=== PATIENT | female | born 1950 | race Caucasian/White ===

== ENCOUNTER 2017-01-29 11:24 | Outpatient (CLI) | payer MEDICARE, OTHER | END 2017-01-29 11:25 | disposition home or self-care (01) | DX: R00.2 Palpitations (principal); E03.9 Hypothyroidism, unspecified; F41.8 Other specified anxiety disorders; Z79.899 Other long term (current) drug therapy ==

== ENCOUNTER 2017-02-05 11:32 | Outpatient (CLI) | payer MEDICARE, OTHER | END 2017-02-05 11:33 | disposition home or self-care (01) | LOC: LAB.F 11:32 | PROVIDERS: ATTEND Physician Assistant Medical | DX: E55.9 Vitamin D deficiency, unspecified (principal) | CPT/HCPCS: 36415; 80175; 82306 ==

== ENCOUNTER 2017-07-03 10:45 | Outpatient (CLI) | payer MEDICARE, OTHER ==
--- NOTE | 2017-07-04 17:07 | Mammography Report ---
DIGITAL SCREENING MAMMOGRAM: 07/03/2017 CLINICAL INDICATION: A 66-year-old for screening. COMPARISON: 05/2016, 05/2015, 04/2014, 04/2009. TECHNIQUE: Routine CC and MLO projections were obtained of the breasts. The breasts demonstrate heterogeneously dense fibroglandular parenchyma bilaterally. Coarse and punc guzman, typically benign calcifications are present. No suspicious masses, clustered microcalcificatio ns, or regions of architectural distortion are identified. IMPRESSION: BENIGN FINDINGS. RECOMMENDATION: ROUTINE ANNUAL SCREENING UNLESS OTHERWISE CLINICALLY INDICATED. BIRADS CATEGORY: 2, BENIGN FINDINGS. STANDARD QUALIFYING STATEMENTS 1. This examination was reviewed with the aid of Computed-Aided Detection (CAD). 2. A negative or benign imaging report should not delay biopsy if clinically suspicious findings are present. Consider surgical consultation if warranted. More than 5% of cancers are not identified b y imaging. 3. Dense breasts may obscure an underlying neoplasm. JOB #: [id number] EXT JOB #:[id number]
== END 2017-07-03 10:46 | disposition home or self-care (01) ==
LOC: DI.S 10:45
PROVIDERS: ATTEND Physician Assistant Medical
DX: Z12.31 Encounter for screening mammogram for malignant neoplasm of breast (principal)
CPT/HCPCS: 77067

== ENCOUNTER 2018-03-12 09:45 | Outpatient (CLI) | payer MEDICARE, OTHER ==
[2018-03-12 17:51] LABS: BASOPHILS % (AUTO) 0.9 %; EOSINOPHILS # (AUTO) 0.2 10^3/uL (0.0-0.7); EOSINOPHILS % (AUTO) 3.3 %; HGB - HEMOGLOBIN 13.8 g/dL (12.0-16.0); LYMPHOCYTES # (AUTO) 1.3 10^3/uL (1.5-3.5); LYMPHOCYTES % (AUTO) 26.7 %; MEAN CORPUSCULAR HEMOGLOBIN 30.7 pg (27.0-31.0); MEAN CORPUSCULAR HGB CONC 32.6 g/dL (32.0-36.0); MEAN PLATELET VOLUME 10.2 fL (7.9-10.8); MONOCYTES # (AUTO) 0.6 10^3/uL (0.0-1.0); MONOCYTES % (AUTO) 11.4 %; NEUTROPHILS # (AUTO) 2.9 10^3/uL (1.5-6.6); NEUTROPHILS % (AUTO) 57.7 %; PLT - PLATELET COUNT 280 10^3/uL (130-450); RED BLOOD COUNT 4.49 10^6/uL (4.20-5.40); RED CELL DISTRIBUTION WIDTH 13.3 % (12.0-15.0); WHITE BLOOD COUNT 4.9 x10^3/uL (4.8-10.8)
[2018-03-12 18:18] LABS: ALBUMIN 3.5 g/dL (3.2-5.5); ALBUMIN/GLOBULIN RATIO 1.2 (1.0-2.2); ALKALINE PHOSPHATASE 72 IU/L (42-121); ALT ALANINE AMINOTRANSFERASE 16 IU/L (10-60); AST ASPARTATE AMINOTRANSFERASE 22 IU/L (10-42); BILIRUBIN,TOTAL 0.8 mg/dL (0.2-1.0); BUN - BLOOD UREA NITROGEN 12 mg/dL (6-20); CALCIUM 8.9 mg/dL (8.5-10.3); CARBON DIOXIDE - CO2 28 mmol/L (21-32); CHLORIDE 103 mmol/L (101-111); CHOL/HDL RATIO 2.9 (<4.4); CHOLESTEROL 218 mg/dL; CREATININE 0.7 mg/dL (0.4-1.0); GFR - MDRD 83 (>89); GLUCOSE 85 mg/dL (70-100); HDL CHOLESTEROL 76 mg/dL; LDL CHOLESTEROL,CALCULATED 123 mg/dL; LDL/HDL RATIO 1.6 (<4.4); SODIUM 135 mmol/L (135-145); TOTAL PROTEIN 6.5 g/dL (6.7-8.2); VLDL CHOLESTEROL 19 mg/dL
== END 2018-03-12 09:46 | disposition home or self-care (01) ==
LOC: LAB.F 09:45
PROVIDERS: ATTEND Physician Assistant Medical
DX: E78.5 Hyperlipidemia, unspecified (principal); Z51.81 Encounter for therapeutic drug level monitoring; Z79.899 Other long term (current) drug therapy; E03.9 Hypothyroidism, unspecified
CPT/HCPCS: 36415; 80053; 80061; 83721; 84443; 85025

== ENCOUNTER 2018-05-15 08:11 | Outpatient (CLI) | payer MEDICARE, OTHER | END 2018-05-15 08:12 | disposition home or self-care (01) | LOC: LAB.F 08:11 | PROVIDERS: ATTEND Physician Assistant Medical | DX: E03.9 Hypothyroidism, unspecified (principal) | CPT/HCPCS: 36415; 84443 ==

== ENCOUNTER 2019-02-27 09:14 | Outpatient (CLI) | payer MEDICARE, OTHER ==
[2019-02-27 17:35] LABS: EOSINOPHILS # (AUTO) 0.2 10^3/uL (0.0-0.7); EOSINOPHILS % (AUTO) 3.7 %; HGB - HEMOGLOBIN 14.2 g/dL (12.0-16.0); LYMPHOCYTES # (AUTO) 1.2 10^3/uL (1.5-3.5); LYMPHOCYTES % (AUTO) 27.2 %; MEAN CORPUSCULAR HEMOGLOBIN 31.1 pg (27.0-31.0); MEAN CORPUSCULAR HGB CONC 32.7 g/dL (32.0-36.0); MEAN CORPUSCULAR VOLUME 94.9 fL (81.0-99.0); MEAN PLATELET VOLUME 9.7 fL (7.9-10.8); MONOCYTES # (AUTO) 0.5 10^3/uL (0.0-1.0); MONOCYTES % (AUTO) 11.2 %; NEUTROPHILS # (AUTO) 2.5 10^3/uL (1.5-6.6); NEUTROPHILS % (AUTO) 56.9 %; PLT - PLATELET COUNT 279 10^3/uL (130-450); RED BLOOD COUNT 4.57 10^6/uL (4.20-5.40); WHITE BLOOD COUNT 4.5 x10^3/uL (4.8-10.8)
[2019-02-27 17:53] LABS: ALBUMIN 3.9 g/dL (3.2-5.5); ALBUMIN/GLOBULIN RATIO 1.3 (1.0-2.2); ALKALINE PHOSPHATASE 68 IU/L (42-121); ALT ALANINE AMINOTRANSFERASE 20 IU/L (10-60); AST ASPARTATE AMINOTRANSFERASE 25 IU/L (10-42); BILIRUBIN,TOTAL 0.6 mg/dL (0.2-1.0); BUN - BLOOD UREA NITROGEN 12 mg/dL (6-20); CALCIUM 9.1 mg/dL (8.5-10.3); CARBON DIOXIDE - CO2 25 mmol/L (21-32); CHLORIDE 106 mmol/L (101-111); CHOL/HDL RATIO 2.9 (<4.4); CHOLESTEROL 249 mg/dL; CREATININE 0.8 mg/dL (0.4-1.0); GFR - MDRD 71 (>89); GLUCOSE 90 mg/dL (70-100); HDL CHOLESTEROL 85 mg/dL; LDL CHOLESTEROL,CALCULATED 148 mg/dL; LDL/HDL RATIO 1.7 (<4.4); SODIUM 140 mmol/L (135-145); TOTAL PROTEIN 6.9 g/dL (6.7-8.2); VLDL CHOLESTEROL 16 mg/dL
== END 2019-02-27 09:15 | disposition home or self-care (01) ==
LOC: LAB.F 09:14
PROVIDERS: ATTEND Physician Assistant Medical
DX: Z51.81 Encounter for therapeutic drug level monitoring (principal); E78.5 Hyperlipidemia, unspecified; E03.9 Hypothyroidism, unspecified
CPT/HCPCS: 36415; 80053; 80061; 83721; 84443; 85025

== ENCOUNTER 2019-03-19 14:20 | Outpatient (CLI) | payer MEDICARE, OTHER ==
--- NOTE | 2019-03-20 10:33 | DEXA Report ---
Reason: POST MENOPAUSAL STATUS Procedure Date: 03/19/2019 Accession Number: [id number] / [id number] Procedure: DEX - Dexa Spine and/or Hip CPT Code: FULL RESULT: EXAM: Dexa Spine and/or Hip DATE: 03/19/2019 2:52 PM CLINICAL HISTORY: POST MENOPAUSAL STATUS TECHNIQUE: Dual energy x-ray absorptiometry (DXA) was performed on a [employer] System. Regions measured are the AP Spine, femoral neck, and if needed forearm. COMPARISON: 06/15/2016. In accordance with the International Society for Clinical Densitometry (ISCD) guidelines, data from previous exams may be reanalyzed using current recommendations and techniques. This is done to allow a more accurate basis for comparison with the current study. FINDINGS: The data for the lumbar spine is as follows: BMD (g/cm/cm) T-SCORE Z-SCORE REGION L1 0.978 -1.3 -0.1 L2 0.870 -2.8 -1.6 L3 1.183 -0.1 1.0 L4 1.297 0.8 2.0 TOTAL 1.096 -0.7 0.5 NOTE: All evaluable vertebrae are used for classification The data for the hip is as follows: BMD (g/cm/cm) T-SCORE Z-SCORE REGION Neck 0.730 -2.2 -0.9 TOTAL 0.814 -1.5 -0.5 NOTE: The femoral neck or total proximal femur, whichever is lowest, is used for classification. DXA RESULTS SUMMARY: Spine SCAN DATE AGE BMD CHANGE VS CHANGE VS PREVIOUS PREVIOUS % 2/19[birth year][age] 1[age]096 0.066* 6.4* 06[age]18/2016 [age] 1[age]030 * Denotes significant change at the 95% confidence level. Denotes dissimilar scan types or analysis methods. DXA RESULTS SUMMARY: Hip SCAN DATE AGE BMD CHANGE VS CHANGE VS PREVIOUS PREVIOUS % 2/19[birth year]2019 68.5 0.814 -0.025 -3.0 [birth year]18[birth year]2016 65.8 0.839 * Denotes significant change at the 95% confidence level. Denotes dissimilar scan types or analysis methods. IMPRESSION: THE WHO CLASSIFICATION BASED ON THE INTERNATIONAL REFERENCE STANDARD IS OSTEOPENIA. THE FRACTURE RISK IS INCREASED. RECOMMENDATION: Patients with diagnosis of osteoporosis or osteopenia should have regular bone mineral density assessment. For those eligible for Medicare, routine testing is allowed once every 2 years. Testing frequency can be increased for patients who have rapidly progressing disease or for those who are receiving medical therapy to restore bone mass. COMMENT: World Health Organization (WHO) definitions for osteoporosis and osteopenia: NORMAL BMD: T-score at -1.0 or higher, fracture risk is low OSTEOPENIA BMD: T-score between -1.0 and -2.5, fracture risk is increased. OSTEOPOROSIS BMD: T-score at -2.5 or lower, fracture risk is high. National Osteoporosis Foundation recommends: 1. Obtain adequate dietary calcium (at least 1200 mg per day) and vitamin D (400-800 international units per day). 2. Participate, as appropriate, in regular weightbearing and muscle-strengthening exercise. 3. Avoid tobacco use and reduce alcohol and caffeine intake. 4. For more detailed information see the website at www.NOF.org.
== END 2019-03-19 14:21 | disposition home or self-care (01) ==
LOC: DI 14:20
PROVIDERS: ATTEND Physician Assistant Medical
DX: M85.89 Other specified disorders of bone density and structure, multiple sites (principal); Z78.0 Asymptomatic menopausal state
CPT/HCPCS: 77080

== ENCOUNTER 2019-03-19 14:22 | Outpatient (CLI) | payer MEDICARE, OTHER ==
--- NOTE | 2019-03-20 10:13 | Mammography Report ---
Reason: SCREENING MAMMOGRAM Procedure Date: 03/19/2019 Accession Number: [id number] / [id number] Procedure: CARLOS - Screening Mammo w/Mino CPT Code: FULL RESULT: EXAM: Screening Mammo w/Mino DATE: 03/19/2019 3:16 PM CLINICAL HISTORY: Screening encounter. No reported risk factors. TECHNIQUE: (B) - Bilateral CC and MLO views were obtained. COMPARISON: 07/03/2017 through 05/05/2014. PARENCHYMAL PATTERN: (A) - The breast(s) demonstrate(s) scattered fibroglandular densities. FINDINGS: There are coarse typically benign calcifications. There are no suspicious masses, calcifications, or areas of distortion. IMPRESSION: Benign findings. BI-RADS category 2. RECOMMENDATION: (ANNUAL) - Recommend routine annual screening mammography. BI-RADS CATEGORY: (2) - Benign Findings. STANDARD QUALIFYING STATEMENTS: 1. This examination was not reviewed with the aid of Computer-Aided Detection (CAD). 2. A negative or benign imaging report should not preclude biopsy if clinically suspicious findings are present. 3. Dense breasts may obscure an underlying neoplasm. 4. This examination was reviewed with the aid of 3D breast imaging (tomosynthesis).
== END 2019-03-19 14:23 | disposition home or self-care (01) ==
LOC: DI 14:22
PROVIDERS: ATTEND Physician Assistant Medical
DX: Z12.31 Encounter for screening mammogram for malignant neoplasm of breast (principal)
CPT/HCPCS: 77063; 77067

== ENCOUNTER 2020-03-21 07:32 | Outpatient (CLI) | payer MEDICARE, OTHER ==
[2020-03-21 15:40] LABS: BASOPHILS % (AUTO) 0.7 %; EOSINOPHILS # (AUTO) 0.4 10^3/uL (0.0-0.7); HGB - HEMOGLOBIN 13.8 g/dL (12.0-16.0); LYMPHOCYTES # (AUTO) 1.5 10^3/uL (1.5-3.5); LYMPHOCYTES % (AUTO) 27.3 %; MEAN CORPUSCULAR HEMOGLOBIN 31.1 pg (27.0-31.0); MEAN CORPUSCULAR HGB CONC 31.7 g/dL (32.0-36.0); MEAN CORPUSCULAR VOLUME 98.2 fL (81.0-99.0); MEAN PLATELET VOLUME 11.6 fL (7.9-10.8); MONOCYTES # (AUTO) 0.7 10^3/uL (0.0-1.0); NEUTROPHILS # (AUTO) 2.7 10^3/uL (1.5-6.6); NEUTROPHILS % (AUTO) 50.6 %; PLT - PLATELET COUNT 258 10^3/uL (130-450); RED BLOOD COUNT 4.44 10^6/uL (4.20-5.40); RED CELL DISTRIBUTION WIDTH 13.2 % (12.0-15.0); WHITE BLOOD COUNT 5.4 x10^3/uL (4.8-10.8)
[2020-03-21 16:04] LABS: ALBUMIN 3.4 g/dL (3.2-5.5); ALBUMIN/GLOBULIN RATIO 1.1 (1.0-2.2); ALKALINE PHOSPHATASE 62 IU/L (42-121); ALT ALANINE AMINOTRANSFERASE 16 IU/L (10-60); AST ASPARTATE AMINOTRANSFERASE 20 IU/L (10-42); BILIRUBIN,TOTAL 0.6 mg/dL (0.2-1.0); BUN - BLOOD UREA NITROGEN 17 mg/dL (6-20); CALCIUM 8.7 mg/dL (8.5-10.3); CARBON DIOXIDE - CO2 25 mmol/L (21-32); CHLORIDE 107 mmol/L (101-111); CHOL/HDL RATIO 2.9 (<4.4); CHOLESTEROL 229 mg/dL; CREATININE 0.8 mg/dL (0.4-1.0); GLUCOSE 90 mg/dL (70-100); HDL CHOLESTEROL 79 mg/dL; LDL CHOLESTEROL,CALCULATED 136 mg/dL; LDL/HDL RATIO 1.7 (<4.4); SODIUM 139 mmol/L (135-145); TOTAL PROTEIN 6.5 g/dL (6.7-8.2); VLDL CHOLESTEROL 14 mg/dL
== END 2020-03-21 07:33 | disposition home or self-care (01) ==
LOC: LAB.S 07:32
PROVIDERS: ATTEND Registered Nurse
DX: F41.8 Other specified anxiety disorders (principal); R03.0 Elevated blood-pressure reading, without diagnosis of hypertension; E03.9 Hypothyroidism, unspecified; J45.909 Unspecified asthma, uncomplicated
CPT/HCPCS: 36415; 80053; 80061; 83721; 84443; 85025

== ENCOUNTER 2020-05-25 13:43 | Outpatient (CLI) | payer MEDICARE, OTHER ==
--- NOTE | 2020-05-30 10:34 | Mammography Report ---
BILATERAL DIGITAL SCREENING MAMMOGRAM 3D/2D: 05/25/2020 CLINICAL: Routine screening. Comparison is made to exams dated: 03/19/2019 mammogram, 07/03/2017 mammogram, 06/12/2016 mammogram, mammogram, and 05/05/2014 mammogram - [facility]. There are scattered fibrog landular elements in both breasts. No significant masses, calcifications, or other findings are seen in either breast. There has been no significant interval change. IMPRESSION: NEGATIVE There is no mammographic evidence of malignancy. A 1 year screening mammogram is recommended. This exam was interpreted at Station ID: [id number]. NOTE: For mammograms, a report in lay terms will be sent to the patient. Approximately 15% of breast malignancies will not be visualized mammographically. In the management of a palpable breast mass, a negative mammogram must not discourage biopsy of a clinically suspicious lesion. Electronically Signed By: Patrick Pavon M.D. aty/penrad:05/27/2020 08:36:19 ACR BI-RADS Category 1: Negative 3341F PARENCHYMAL PATTERN: (A) - The breast(s) demonstrate(s) scattered fibroglandular densities. BI-RADS CATEGORY: (1) - 1 RECOMMENDATION: (ANNUAL) - Recommend routine annual screening mammography. [id number] 1 year screening LATERALITY: (B)
== END 2020-05-25 13:44 | disposition home or self-care (01) ==
LOC: DI 13:43
PROVIDERS: ATTEND Registered Nurse
DX: Z12.31 Encounter for screening mammogram for malignant neoplasm of breast (principal)
CPT/HCPCS: 77063; 77067

== ENCOUNTER 2020-10-31 09:53 | Day surgery (SDC) | payer MEDICARE, OTHER ==
[2020-10-31] MEDS ORDERED: LACTATED RINGERS 1,000 ML IV ONE (10:05)
[2020-10-31] MEDS ORDERED: fentaNYL 250 MCG/5 ML VIAL ONE (11:55)
[2020-10-31] MEDS ORDERED: MIDAZOLAM 2 MG/2 ML VIAL ONE ×3 (11:55→12:22)
[2020-10-31 13:08] VITALS: BP 121/72
== END 2020-10-31 09:54 | disposition home or self-care (01) ==
LOC: SDS 09:53
PROVIDERS: ATTEND Internal Medicine Gastroenterology
PROC: 0DBL8ZZ Excision of Transverse Colon, Via Natural or Artificial Opening Endoscopic (ICD-10-PCS; 2020-10-31)
PROC: 0DBN8ZZ Excision of Sigmoid Colon, Via Natural or Artificial Opening Endoscopic (ICD-10-PCS; 2020-10-31)
PROC: 0DBM8ZZ Excision of Descending Colon, Via Natural or Artificial Opening Endoscopic (ICD-10-PCS; 2020-10-31)
PROC: 0DBM8ZZ Excision of Descending Colon, Via Natural or Artificial Opening Endoscopic (ICD-10-PCS; 2020-10-31)
PROC: 0DBN8ZZ Excision of Sigmoid Colon, Via Natural or Artificial Opening Endoscopic (ICD-10-PCS; 2020-10-31)
PROC: 3E0H8KZ Introduction of Other Diagnostic Substance into Lower GI, Via Natural or Artificial Opening Endoscopic (ICD-10-PCS; 2020-10-31)
PROC: 0DBH8ZZ Excision of Cecum, Via Natural or Artificial Opening Endoscopic (ICD-10-PCS; principal; 2020-10-31 11:15)
DX: Z12.11 Encounter for screening for malignant neoplasm of colon (principal); D12.0 Benign neoplasm of cecum; D12.4 Benign neoplasm of descending colon; D12.5 Benign neoplasm of sigmoid colon; K57.30 Diverticulosis of large intestine without perforation or abscess without bleeding; J45.909 Unspecified asthma, uncomplicated
CPT/HCPCS: 45380; 45381; 45385; J3010; J7120

== ENCOUNTER 2020-11-16 08:00 | Outpatient (CLI) | payer MEDICARE, OTHER ==
--- NOTE | 2020-11-16 13:11 | XRAY Report ---
PROCEDURE: Abdomen Acute INDICATIONS: ABDOMINAL PAIN TECHNIQUE: One view chest and two views of the abdomen were acquired. COMPARISON: FINDINGS: Surgical changes and devices: None. Chest: Lungs are clear. Heart size is normal. No pleural effusions. No pneumoperitoneum. Abdomen: Bowel gas pattern is normal. No suspicious calcifications. Visualized solid organ contour s appear normal. Bones: No suspicious bony lesions. Mild scoliosis convex rightward at the thoracolumbar junction an d convex leftward at the L2-L3 level of the lumbosacral spine. IMPRESSION: No bowel obstruction or perforation found. Reviewed by: Shlomo Rodney MD on 11/16/2020 1:10 PM PST Approved by: Shlomo Rodney MD on 11/16/2020 1:10 PM PST Station ID: [id number]
== END 2020-11-16 23:59 | disposition home or self-care (01) ==
LOC: DI.S 08:00
PROVIDERS: ATTEND Emergency Medicine
DX: R10.84 Generalized abdominal pain (principal)

== ENCOUNTER 2021-02-28 09:30 | Outpatient (CLI) | payer MEDICARE, OTHER ==
--- NOTE | 2021-02-28 11:18 | MRI Report ---
PROCEDURE: Lumbar Spine W/O INDICATIONS: Low back pain TECHNIQUE: Noncontrast sagittal T1 spin echo and T2 fast echo, sagittal STIR, axial T1 and T2 fast spin echo thr ough the lumbar spine. In cases with scoliosis, additional coronal T2 fast spin echo may be performe d. COMPARISON: None. FINDINGS: Image quality: Excellent. Alignment and Curvature: S-shaped scoliosis in the lower thoracic and lumbar spine, with a thoracolum bar dextroscoliosis and compensatory lower lumbar levoscoliosis. No significant listhesis. Vertebral body heights maintained. Bone Marrow: No suspicious focal marrow signal abnormality or bone marrow edema. Spinal Cord: Normal position and appearance of the conus. Regional Soft Tissues: Prevertebral and paraspinous soft tissues are within normal limits. The includ ed unenhanced retroperitoneal visceral structures demonstrate no acute finding in the absence of IV c ontrast. T12-L1: No spinal canal or neural foraminal stenosis. Disc desiccation without significant disc heig ht loss. L1-L2: Disc desiccation and disc height loss. Posterior annular fissure in the central zone (serie s 601 image 11). Disc bulge flattens ventral thecal sac without mass effect upon the traversing L2 ne rve roots. No neural foraminal stenosis. L2-L3: Disc desiccation and disc height loss. Diffuse disc bulge flattens the ventral thecal sac. No mass effect upon the traversing L3 nerve roots. Foraminal components of the disc bulge contribute to mild bilateral neural foraminal narrowing in conjunction with facet hypertrophy. Small facet effusion s. L3-L4: Disc desiccation and disc height loss. Cervical vertebral disc bulge flattens the ventral th ecal sac with mild displacement of the descending L4 nerve roots in both subarticular zones. Femoral components of the disc bulge and facet projecting adjacent to mild neural foraminal narrowing, right greater than left. L4-L5: Diffuse disc bulge flattens the ventral thecal sac. Disc material abuts but does not obvious ly displace the descending L5 nerve roots. There is mild bilateral neural foraminal narrowing due to foraminal components of the disc bulge. L5-S1: Disc bulge without mass effect upon the S1 nerve roots or neural foraminal stenosis on the r ight. On the left, there is moderate neural foraminal narrowing with flattening/deformation of the ex iting left L5 nerve root. IMPRESSION: Multilevel multifactorial degenerative changes. Facet hypertrophy at multiple levels with small facet effusions represent potential sources of nonrad icular axial back pain. Potential impingement of the exiting left L5 nerve root within the left L5-S1 foramen; correlate for corresponding radicular symptoms. Reviewed by: Anurag Posadas MD on 02/28/2021 11:16 AM PDT Approved by: Anurag Posadas MD on 02/28/2021 11:16 AM PDT Station ID: [id number]
== END 2021-02-28 09:31 | disposition home or self-care (01) ==
LOC: DI 09:30
PROVIDERS: ATTEND Physician Assistant
DX: M51.36 Other intervertebral disc degeneration, lumbar region (principal); M48.061 Spinal stenosis, lumbar region without neurogenic claudication; M51.37 Other intervertebral disc degeneration, lumbosacral region; M47.816 Spondylosis without myelopathy or radiculopathy, lumbar region

== ENCOUNTER 2021-03-29 08:56 | Emergency (ER) | payer MEDICARE, OTHER ==
[2021-03-29] MEDS ORDERED: AMPICILLIN/SULBACTAM 3 GM in SODIUM CHLORIDE 0.9% MINIBAG 100 ML IV STA (09:24)
--- NOTE | 2021-03-29 09:25 | ED Physician Documentation ---
PD HPI WOUND RECHECK - Stated complaint Stated Complaint: CAT BITE - Chief complaint Chief Complaint: Wound - Histroy obtained from History obtained from: Patient - Additional information Additional information: 70-year-old woman was bitten to the right lower extremity by her cat 5 days ago. 3 days ago went to urgent care because she was starting to get swelling and redness and has taken a total of 7 doses of Augmentin so far. She has had increasing swelling of the foot with pain today. No fevers. She has not been elevating it. They did update her tetanus the other day at the urgent care. Review of Systems Ten Systems: 10 systems reviewed and negative Constitutional: reports: Reviewed and negative Eyes: reports: Reviewed and negative Ears: reports: Reviewed and negative Nose: reports: Reviewed and negative PD PAST MEDICAL HISTORY - Past Medical History Cardiovascular: Arrhythmia, Other Respiratory: Asthma Endocrine/Autoimmune: HyPOthyroidism GI: Ulcers : None HEENT: Chronic vision loss Psych: Anxiety Musculoskeletal: Osteoarthritis Derm: None - Past Surgical History General: Appendectomy, Colonoscopy HEENT: Tonsil/Adenoidectomy - Present Medications Home Medications: Ambulatory Orders Medication Instructions Recorded Confirmed Levothyroxine [Synthroid] 1 tab ORAL DAILY 05/02/20 10/28/20 Fluticasone 44 Mcg [Flovent] 2 puffs INH BID 10/28/20 10/28/20 Amitriptyline [Elavil] 10 mg PO QPM 03/29/21 03/29/21 Amox/Clav 875/125 [Augmentin 1 tab BID 03/29/21 03/29/21 875/125 Tab] Amox/Clav 875/125 [Augmentin] 1 each PO Q12H #20 tablet 03/29/21 - Allergies Allergies/Adverse Reactions: Allergies Allergy/AdvReac Type Severity Reaction Status Date / Time No Known Drug Allergies Allergy Verified 03/29/21 09:09 PD ED PE NORMAL - Vitals Vital signs reviewed: Yes - General General: Alert and oriented X 3, No acute distress - HEENT HEENT: PERRL, EOMI - Neck Neck: Supple, no meningeal sign, No bony TTP - Cardiac Cardiac: RRR, No murmur - Respiratory Respiratory: No respiratory distress, Clear bilaterally - Abdomen Abdomen: Normal bowel sounds, Soft, Non tender - Back Back: No CVA TTP, No spinal TTP - Derm Derm: Normal color, Warm and dry - Extremities Extremities: Other (She has cellulitis from the mid chino down to the ankle with reactive edema of the foot but no cellulitis of the foot. There is a puncture wound a few centimeters above the ankle just lateral to the tibia, no drainage. No fluctuance.) - Neuro Neuro: Alert and oriented X 3, Normal speech Results - Vitals Vitals: Vital Signs - 24 hr 03/29/21 09:06 Temperature 36.1 C L Heart Rate 100 Respiratory 16 Rate Blood Pressure 159/95 H O2 Saturation 98 Oxygen O2 Source Room air - Labs Labs: Laboratory Tests 03/29/21 03/29/21 03/29/21 09:30 09:30 09:30 WBC 6.0 RBC 4.42 Hgb 13.3 Hct 41.1 MCV 93.0 MCH 30.1 MCHC 32.4 RDW 14.0 Plt Count 282 MPV 11.2 H Neut # (Auto) 4.0 Lymph # (Auto) 1.0 L Alexander # (Auto) 0.8 Eos # (Auto) 0.1 Baso # (Auto) 0.0 Absolute Nucleated RBC 0.00 Nucleated RBC % 0.0 ESR 28 Sodium 136 Potassium 4.0 Chloride 102 Carbon Dioxide 25 Anion Gap 9.0 BUN 13 Creatinine 0.9 Estimated GFR (MDRD) 62 L Glucose 164 H Calcium 9.1 C-Reactive Protein 11.7 H PD MEDICAL DECISION MAKING - ED course ED course: 70-year-old woman with infected cat bite. Cellulitis is not worsening but has more swelling of the foot now. She was advised to elevate as much as possible. Given a dose of Unasyn here. Given the lack of leukocytosis and normal ESR despite a modestly elevated CRP I think she can continue with outpatient therapy and she was thankful. Given close return precautions. Departure - Departure Disposition: 01 Home, Self Care Clinical Impression: Cellulitis Qualifiers: Site of cellulitis: extremity Site of cellulitis of extremity: lower extremity Laterality: right Qualified Code(s): L03.115 - Cellulitis of right lower limb Condition: Good Record reviewed to determine appropriate education?: Yes Instructions: Cellulitis Dc Prescriptions: Amox/Clav 875/125 [Augmentin] 1 each PO Q12H #20 tablet Comments: Return if not improving over the next 24 to 48 hours or anytime if worsening or if running a fever. Follow-up with your primary care physician, discuss modestly elevated CRP and what they mean that may mean for cardiovascular risk factors and optimization. Keep the elevate leg elevated is much as possible.
[2021-03-29 09:42] LABS: BASOPHILS % (AUTO) 0.7 %; EOSINOPHILS # (AUTO) 0.1 10^3/uL (0.0-0.7); EOSINOPHILS % (AUTO) 2.2 %; HCT - HEMATOCRIT 41.1 % (37.0-47.0); HGB - HEMOGLOBIN 13.3 g/dL (12.0-16.0); LYMPHOCYTES % (AUTO) 16.2 %; MEAN CORPUSCULAR HEMOGLOBIN 30.1 pg (27.0-31.0); MEAN CORPUSCULAR HGB CONC 32.4 g/dL (32.0-36.0); MEAN PLATELET VOLUME 11.2 fL (7.9-10.8); MONOCYTES # (AUTO) 0.8 10^3/uL (0.0-1.0); MONOCYTES % (AUTO) 13.6 %; NEUTROPHILS % (AUTO) 66.8 %; PLT - PLATELET COUNT 282 10^3/uL (130-450); RED BLOOD COUNT 4.42 10^6/uL (4.20-5.40)
[2021-03-29 10:00] LABS: CALCIUM 9.1 mg/dL (8.5-10.3); CREATININE 0.9 mg/dL (0.4-1.0); CRP - C-REACTIVE PROTEIN 11.7 mg/dL (0-1.0)
[2021-03-29 10:48] VITALS: BP 144/87
== END 2021-03-29 10:55 | disposition home or self-care (01) ==
LOC: ED 08:56
DX: L03.115 Cellulitis of right lower limb (principal)
CPT/HCPCS: 36415; 80048; 85025; 85651; 86140; 96365; 99284

== ENCOUNTER 2021-05-08 07:00 | Outpatient (CLI) | payer MEDICARE, OTHER ==
[2021-05-08 20:11] LABS: BILIRUBIN,URINE NEGATIVE (NEGATIVE); GLUCOSE, URINE (UA) NEGATIVE (NEGATIVE); KETONES,URINE (UA) NEGATIVE (NEGATIVE); LEUKOCYTE ESTERASE, URINE SMALL (NEGATIVE); NITRITE,URINE NEGATIVE (NEGATIVE); OCCULT BLOOD,URINE NEGATIVE (NEGATIVE); PROTEIN,URINE NEGATIVE (NEGATIVE); UROBILINOGEN,URINE 0.2 (NORMAL) E.U./dL (NORMAL)
[2021-05-08 20:32] LABS: BACTERIA,URINE Rare /HPF (None Seen); CLARITY,URINE CLEAR (CLEAR); RBC,URINE None Seen /HPF (0-5); SQUAMOUS EPITHELIAL CELL,UR RARE Squamous (<= Few)
== END 2021-05-08 23:59 | disposition home or self-care (01) ==
LOC: LAB.R 07:00
PROVIDERS: ATTEND Emergency Medicine
DX: R30.0 Dysuria (principal)
CPT/HCPCS: 81001; 87086

== ENCOUNTER 2021-05-22 08:00 | Outpatient (CLI) | payer MEDICARE, OTHER | END 2021-05-22 23:59 | disposition home or self-care (01) | LOC: LAB.S 08:00 | PROVIDERS: ATTEND Physician Assistant Medical | DX: R39.15 Urgency of urination (principal) | CPT/HCPCS: 87086 ==

== ENCOUNTER 2021-05-29 11:02 | Outpatient (CLI) | payer MEDICARE, OTHER ==
--- NOTE | 2021-05-30 15:25 | Mammography Report ---
BILATERAL DIGITAL SCREENING MAMMOGRAM 3D/2D: 05/29/2021 CLINICAL: Routine screening. Comparison is made to exams dated: 05/25/2020 mammogram, 03/19/2019 mammogram, and 07/03/2017 mammogram - [facility]. There are scattered fibroglandular elements in both breasts. No significant masses, calcifications, or other findings are seen in either breast. There has been no significant interval change. IMPRESSION: NEGATIVE There is no mammographic evidence of malignancy. A 1 year screening mammogram is recommended. This exam was interpreted at Station ID: [id number]. NOTE: For mammograms, a report in lay terms will be sent to the patient. Approximately 15% of breast malignancies will not be visualized mammographically. In the management of a palpable breast mass, a negative mammogram must not discourage biopsy of a clinically suspicious lesion. Electronically Signed By: Patrick Pavon M.D. aty/penrad:05/29/2021 13:16:34 ACR BI-RADS Category 1: Negative 3341F PARENCHYMAL PATTERN: (A) - The breast(s) demonstrate(s) scattered fibroglandular densities. BI-RADS CATEGORY: (1) - 1 RECOMMENDATION: (ANNUAL) - Recommend routine annual screening mammography. [id number] 1 year screening LATERALITY: (B)
== END 2021-05-29 11:03 | disposition home or self-care (01) ==
LOC: DI.S 11:02
PROVIDERS: ATTEND Physician Assistant
DX: Z12.31 Encounter for screening mammogram for malignant neoplasm of breast (principal)

== ENCOUNTER 2021-06-23 13:46 | Outpatient (CLI) | payer MEDICARE, OTHER ==
--- NOTE | 2021-06-23 15:57 | Ultrasound Report ---
PROCEDURE: Pelvic w/Transvaginal INDICATIONS: PELVIC PAIN TECHNIQUE: Real-time scanning was performed of the pelvic organs, with image documentation. Additional endovagi nal scanning was necessary due to incomplete visualization of the adnexal and endometrial structures by transabdominal scanning. COMPARISON: None. FINDINGS: No pathologic free abdominal or pelvic fluid. Uterus: Uterus is anteverted measuring 6.4 x 3.6 x 3.9 cm. With an estimated volume of 46.6 cc. The endometrium is suboptimally visualized measuring 4.1 mm in combined thickness. There is a 2.0 x 1.8 x 2.2 cm intramural fibroid in the anterior wall at midline. Ovaries: Right ovary measures 1.3 x 0.7 x 0.7 cm with an estimated volume of 0.4 cc. Left ovary donnie ures 2.2 x 1.1 x 1.0 cm, with an estimated volume of 2.4 cc. There is a 1.7 x 1.1 x 1.5 cm hyperechoi c cyst in the left ovary. In addition, there is 1.0 x 1.9 x 0.9 cm mild complex cyst in the left ovar y is IMPRESSION: 1. 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 2. A couple of complex cysts in left ovary. Recommend follow-up ultrasound in 6 weeks. Reviewed by: Samara Alvarado MD on 06/23/2021 3:55 PM PDT Approved by: Samara Alvarado MD on 06/23/2021 3:55 PM PDT Station ID: [id number]
== END 2021-06-23 13:47 | disposition home or self-care (01) ==
LOC: DI 13:46
PROVIDERS: ATTEND Physician Assistant
DX: R10.2 Pelvic and perineal pain (principal); D25.1 Intramural leiomyoma of uterus; N83.292 Other ovarian cyst, left side

== ENCOUNTER 2021-08-04 13:43 | Outpatient (CLI) | payer MEDICARE, OTHER ==
--- NOTE | 2021-08-04 16:58 | Ultrasound Report ---
PROCEDURE: Pelvic w/Transvaginal INDICATIONS: COMPLEX CYST OF LEFT OVARY TECHNIQUE: Real-time scanning was performed of the pelvic organs, with image documentation. Additional endovagi nal scanning was necessary due to incomplete visualization of the adnexal and endometrial structures by transabdominal scanning. COMPARISON: June 23, 2021. FINDINGS: UTERUS: Heterogeneous echotexture, anteverted, measuring 7.3 x 3.7 x 4.2 cm. A round isoechoic lesion is seen in the midline anterior uterus, measuring 2.3 x 2.1 x 1.7 cm, most c onsistent with intramural fibroid. A round, isoechoic lesion is seen in the midline body/fundus, measuring 3.8 x 3.2 x 3.6 cm, compatibl e with intramural fibroid. The endometrium is obscured by the aforementioned fibroids. RIGHT OVARY: 1.4 x 0.8 x 1 cm. Color-flow projects over the ovarian tissue. LEFT OVARY: 2.5 x 1.4 x 1.8 cm. Color-flow projects over the ovarian tissue. A slightly hyperechoic l esion is seen within the left ovary, measuring 1.5 x 1 x 1.7 cm, which may reflect endometrioma. OTHER: None. IMPRESSION: 1.Myomatous change of the uterus as detailed above. 2.Persistent, slightly hyperechoic lesion in the left ovary, which may reflect endometrioma. Consider magnetic resonance imaging for further evaluation or sonographic surveillance as clinically warrante d. Reviewed by: Devendra Hernandez MD on 08/04/2021 4:57 PM PDT Approved by: Devendra Hernandez MD on 08/04/2021 4:57 PM PDT Station ID: [id number]
== END 2021-08-04 13:44 | disposition home or self-care (01) ==
LOC: DI 13:43
PROVIDERS: ATTEND Physician Assistant
DX: D25.1 Intramural leiomyoma of uterus (principal); R93.89 Abnormal findings on diagnostic imaging of other specified body structures

== ENCOUNTER 2021-08-28 16:21 | Outpatient (CLI) | payer MEDICARE, OTHER | END 2021-08-28 16:22 | disposition home or self-care (01) | LOC: LAB 16:21 | PROVIDERS: ATTEND Obstetrics & Gynecology | DX: R19.09 Other intra-abdominal and pelvic swelling, mass and lump (principal) | CPT/HCPCS: 81599; 86305 ==

== ENCOUNTER 2021-08-29 16:00 | Outpatient (CLI) | payer MEDICARE, OTHER ==
[2021-08-29 15:15] LABS: BILIRUBIN,URINE NEGATIVE (NEGATIVE); GLUCOSE, URINE (UA) NEGATIVE (NEGATIVE); KETONES,URINE (UA) NEGATIVE (NEGATIVE); LEUKOCYTE ESTERASE, URINE NEGATIVE (NEGATIVE); NITRITE,URINE NEGATIVE (NEGATIVE); OCCULT BLOOD,URINE NEGATIVE (NEGATIVE); PH,URINE 5.5 PH (5.0-7.5); PROTEIN,URINE NEGATIVE (NEGATIVE); UROBILINOGEN,URINE 0.2 (NORMAL) E.U./dL (NORMAL)
[2021-08-29 15:43] LABS: BACTERIA,URINE None Seen /HPF (None Seen); CLARITY,URINE CLEAR (CLEAR); RBC,URINE None Seen /HPF (0-5); SQUAMOUS EPITHELIAL CELL,UR NONE SEEN (<= Few)
== END 2021-08-29 23:59 | disposition home or self-care (01) ==
LOC: LAB 16:00
PROVIDERS: ATTEND Obstetrics & Gynecology
DX: R32 Unspecified urinary incontinence (principal)
CPT/HCPCS: 81001; 87086

== ENCOUNTER 2021-08-30 15:39 | Outpatient (CLI) | payer MEDICARE, OTHER ==
[2021-08-30 20:24] LABS: ALBUMIN 3.8 g/dL (3.2-5.5); ALBUMIN/GLOBULIN RATIO 1.2 (1.0-2.2); BILIRUBIN,TOTAL 0.7 mg/dL (0.2-1.0); CALCIUM 9.2 mg/dL (8.5-10.3); POTASSIUM 3.9 mmol/L (3.5-5.0); TOTAL PROTEIN 6.9 g/dL (6.7-8.2)
== END 2021-08-30 15:40 | disposition home or self-care (01) ==
LOC: LAB.S 15:39
PROVIDERS: ATTEND Obstetrics & Gynecology
DX: R19.09 Other intra-abdominal and pelvic swelling, mass and lump (principal); Z13.1 Encounter for screening for diabetes mellitus; R32 Unspecified urinary incontinence
CPT/HCPCS: 36415; 80053; 83036; 86304

== ENCOUNTER 2021-10-17 08:19 | Outpatient (CLI) | payer MEDICARE, OTHER ==
[2021-10-17 15:28] LABS: BASOPHILS % (AUTO) 0.6 %; EOSINOPHILS # (AUTO) 0.6 10^3/uL (0.0-0.7); EOSINOPHILS % (AUTO) 8.9 %; HCT - HEMATOCRIT 44.8 % (37.0-47.0); HGB - HEMOGLOBIN 14.4 g/dL (12.0-16.0); LYMPHOCYTES # (AUTO) 1.7 10^3/uL (1.5-3.5); MEAN CORPUSCULAR HEMOGLOBIN 30.7 pg (27.0-31.0); MEAN CORPUSCULAR HGB CONC 32.1 g/dL (32.0-36.0); MEAN CORPUSCULAR VOLUME 95.5 fL (81.0-99.0); MEAN PLATELET VOLUME 11.9 fL (7.9-10.8); MONOCYTES # (AUTO) 0.7 10^3/uL (0.0-1.0); MONOCYTES % (AUTO) 10.2 %; NEUTROPHILS # (AUTO) 3.8 10^3/uL (1.5-6.6); NEUTROPHILS % (AUTO) 54.7 %; PLT - PLATELET COUNT 313 10^3/uL (130-450); RED BLOOD COUNT 4.69 10^6/uL (4.20-5.40); RED CELL DISTRIBUTION WIDTH 13.3 % (12.0-15.0); WHITE BLOOD COUNT 6.9 x10^3/uL (4.8-10.8)
[2021-10-17 15:57] LABS: CHOL/HDL RATIO 2.9 (<4.4); CHOLESTEROL 237 mg/dL; HDL CHOLESTEROL 83 mg/dL; LDL CHOLESTEROL,CALCULATED 141 mg/dL; LDL/HDL RATIO 1.7 (<4.4); TRIGLYCERIDES 63 mg/dL; VLDL CHOLESTEROL 13 mg/dL
[2021-10-17 16:00] LABS: THYROID STIMULATING HORMONE 8.42 uIU/mL (0.34-5.60)
[2021-10-17 17:12] LABS: FREE T4 (FREE THYROXINE) 1.13 ng/dL (0.58-1.64)
== END 2021-10-17 08:20 | disposition home or self-care (01) ==
LOC: LAB.S 08:19
PROVIDERS: ATTEND Registered Nurse
DX: E78.5 Hyperlipidemia, unspecified (principal); E03.9 Hypothyroidism, unspecified; Z13.0 Encounter for screening for diseases of the blood and blood-forming organs and certain disorders involving the immune mechanism
CPT/HCPCS: 36415; 80061; 83721; 84439; 84443; 85025

== ENCOUNTER 2021-11-06 06:22 | Day surgery (SDC) | payer MEDICARE, OTHER ==
[2021-11-06] MEDS ORDERED: LACTATED RINGERS 1,000 ML IV ONE (06:31)
--- NOTE | 2021-11-06 07:14 | ANESTHESIA ---
Pre-Anesthesia VS, & Labs - Diagnosis hx of colon polyps - Procedure colonoscopy Vital Signs: Temp Pulse Resp BP Pulse Ox 36.6 C 98 16 150/88 H 99 11/06/21 06:27 11/06/21 06:27 11/06/21 06:27 11/06/21 06:27 11/06/21 06:27 Height: 5 ft 3 in Weight (kg): 78.2 kg Body Mass Index: 30.5 BMI Classification: Obese - NPO >8 hours - Is Patient ?: No - Lab Results Lab results reviewed: Yes Home Medications and Allergies Home Medications: Ambulatory Orders Tolterodine [Detrol LA] 2 mg PO DAILY 11/03/21 Levothyroxine [Synthroid] 1 tab ORAL DAILY 05/02/20 Fluticasone 44 Mcg [Flovent] 2 puffs INH BID 10/28/20 Tolterodine [Detrol LA] 2 mg PO DAILY 11/03/21 Allergies/Adverse Reactions: Allergies Allergy/AdvReac Type Severity Reaction Status Date / Time No Known Drug Allergies Allergy Verified 11/06/21 06:47 Anes History & Medical History - Anesthetic History Anesthesia Complications: reports: No previous complications Family history of Anesthesia Complications: Denies Family history of Malignant Hyperthermia: Denies - Medical History Cardiovascular: reports: Arrhythmia Pulmonary: reports: Asthma Gastrointestinal: reports: Colon polyps Urinary: reports: None Musculoskeletal: reports: None Endocrine/Autoimmune: reports: HyPOthyroidism Skin: reports: None Smoking Status: Never smoker - Surgical History General: reports: Appendectomy, Colonoscopy Eyes Ears Nose Throat (EENT): reports: Tonsil/Adenoidectomy Exam General: Alert, Oriented x3, Cooperative, No acute distress Dental: WNL Mouth Openin Fingerbreadth Neck Mobility: Normal Mallampati classification: I Plan Anesthesia Type: General, Total IV Consent for Procedure(s) Verified and Reviewed: Yes Code Status: Attempt Resuscitation ASA classification: 2-Mild systemic disease Is this case an emergency?: No
[2021-11-06] MEDS ORDERED: PROPOFOL 200 MG/20 ML VIAL IVP ONE ×2 (07:23→08:18)
[2021-11-06] MEDS ORDERED: PROPOFOL 500 MG/50 ML 500 MG/50 ML VIAL ONE (07:23)
[2021-11-06] MEDS ORDERED: fentaNYL 100 MCG/2 ML VIAL ONE ×2 (08:07→08:55)
[2021-11-06] MEDS ORDERED: LACTATED RINGERS 400 ML IV ONE (08:48)
[2021-11-06 09:06] VITALS: BP 104/64
--- NOTE | 2021-11-06 12:22 | ANESTHESIA POST OP EVALUATION ---
Anesthesia Post Eval - Post Anesthesia Eval Vitals: Last Vital Signs Temp 36.3 C L 11/06/21 09:05 Pulse 72 11/06/21 09:05 Resp 16 11/06/21 09:05 BP 104/64 11/06/21 09:05 Pulse Ox 100 11/06/21 09:05 CV Function Including HR & BP: Stable Pain Control: Satisfactory Nausea & Vomiting: Negative Mental Status: Baseline Respiratory Status: Airway Patent Hydration Status: Satisfactory Anesthesia Complications: None
== END 2021-11-06 06:23 | disposition home or self-care (01) ==
LOC: SDS 06:22
PROVIDERS: ATTEND Surgery
PROC: 0DBN8ZZ Excision of Sigmoid Colon, Via Natural or Artificial Opening Endoscopic (ICD-10-PCS; 2021-11-06)
PROC: 0DBH8ZZ Excision of Cecum, Via Natural or Artificial Opening Endoscopic (ICD-10-PCS; principal; 2021-11-06 07:30)
DX: Z12.11 Encounter for screening for malignant neoplasm of colon (principal); D12.0 Benign neoplasm of cecum; K63.5 Polyp of colon; K57.30 Diverticulosis of large intestine without perforation or abscess without bleeding; J45.909 Unspecified asthma, uncomplicated; E66.9 Obesity, unspecified; Z68.30 Body mass index [BMI] 30.0-30.9, adult
CPT/HCPCS: 45380; J7120

== ENCOUNTER 2021-11-21 06:21 | Day surgery (SDC) | payer MEDICARE, OTHER ==
[2021-11-21] MEDS ORDERED: GABAPENTIN 400 MG CAPSULE ONE (06:23)
[2021-11-21] MEDS ORDERED: LACTATED RINGERS 1,000 ML IV ONE (06:24)
[2021-11-21] MEDS ORDERED: CELECOXIB 100 MG CAPSULE PO ONE (06:24)
[2021-11-21] MEDS ORDERED: ACETAMINOPHEN 500 MG TABLET PO ONE (06:24)
[2021-11-21] MEDS ORDERED: PROPOFOL 200 MG/20 ML VIAL IVP ONE (07:12)
[2021-11-21] MEDS ORDERED: LIDOCAINE-MPF 2% 5 ML VIAL ONE (07:12)
[2021-11-21] MEDS ORDERED: DEXAMETHASONE 4 MG/ML VIAL ONE (07:13)
[2021-11-21] MEDS ORDERED: fentaNYL 100 MCG/2 ML VIAL ONE (07:13)
[2021-11-21] MEDS ORDERED: ONDANSETRON 4 MG/2 ML VIAL ONE (07:13)
--- NOTE | 2021-11-21 07:13 | ANESTHESIA ---
Pre-Anesthesia VS, & Labs - Diagnosis post menopausal bleeding - Procedure hysteroscopy d&c with polypectomy Vital Signs: Temp Pulse Resp BP Pulse Ox 36.5 C 84 12 162/80 H 97 11/21/21 06:38 11/21/21 06:38 11/21/21 06:38 11/21/21 06:38 11/21/21 06:38 Height: 5 ft 3.5 in Weight (kg): 79.5 kg Body Mass Index: 30.5 BMI Classification: Obese - NPO >8 hours - Is Patient ?: No - Lab Results Current Lab Results: Laboratory Tests 11/21/21 06:50: POC Whole Bld Glucose 86 Lab results reviewed: Yes Home Medications and Allergies Home Medications: Ambulatory Orders miSOPROStoL [Misoprostol] 200 mcg VG ONCE 11/21/21 Levothyroxine [Synthroid] 1 tab ORAL DAILY 05/02/20 Fluticasone 44 Mcg [Flovent] 2 puffs INH BID 10/28/20 Tolterodine [Detrol LA] 2 mg PO DAILY 11/03/21 miSOPROStoL [Misoprostol] 200 mcg VG ONCE 11/21/21 Allergies/Adverse Reactions: Allergies Allergy/AdvReac Type Severity Reaction Status Date / Time No Known Drug Allergies Allergy Verified 11/21/21 06:44 Anes History & Medical History - Anesthetic History Anesthesia Complications: reports: No previous complications - Medical History Cardiovascular: reports: Arrhythmia Pulmonary: reports: Asthma Gastrointestinal: reports: Colon polyps Urinary: reports: None Neuro: reports: None Musculoskeletal: reports: None Endocrine/Autoimmune: reports: HyPOthyroidism Blood Disorders: reports: None Skin: reports: None Smoking Status: Never smoker Psychosocial: reports: Anxiety, Alcohol (2 glasses of wine per day) History of Cancer?: No - Surgical History General: reports: Appendectomy, Colonoscopy Eyes Ears Nose Throat (EENT): reports: Tonsil/Adenoidectomy Exam General: Alert, Oriented x3, Cooperative, No acute distress Dental: WNL Mouth Openin Fingerbreadth Neck Mobility: Normal Mallampati classification: II Thyromental Distance: 4-6 cm Respiratory: Lungs clear, Normal breath sounds, No respiratory distress, No accessory muscle use Cardiovascular: Regular rate, Normal S1, Normal S2, No murmurs Mental/Cognitive Status: Alert/Oriented X3, Normal for patient Plan Anesthesia Type: General Consent for Procedure(s) Verified and Reviewed: Yes Code Status: Attempt Resuscitation ASA classification: 2-Mild systemic disease Is this case an emergency?: No
[2021-11-21] MEDS ORDERED: HYDROmorphone 0.5 MG/0.5 ML SYRINGE IVP PRN (07:14)
[2021-11-21] MEDS ORDERED: ONDANSETRON 4 MG/2 ML VIAL IVP PRN (07:14)
[2021-11-21] MEDS ORDERED: fentaNYL 100 MCG/2 ML VIAL IVP PRN (07:14)
[2021-11-21] MEDS ORDERED: ATROPINE ABBOJECT 1 MG/10 ML SYRINGE IVP PRN (07:14)
[2021-11-21] MEDS ORDERED: NALOXONE 0.4 MG/ML VIAL IVP PRN (07:14)
[2021-11-21] MEDS ORDERED: MORPHINE 2 MG/ML CARPUJECT IVP PRN (07:14)
[2021-11-21] MEDS ORDERED: LIDOCAINE 2%-EPI 1:100000 20 ML MDV ONE (07:19)
[2021-11-21] MEDS ORDERED: BUPIVACAINE 0.5% PF 10 ML VIAL ONE ×2 (07:19→07:20)
[2021-11-21] MEDS ORDERED: LACTATED RINGERS 1,000 ML IV SCH (08:00)
[2021-11-21] MEDS ORDERED: LIDOCAINE 2%-EPI 1:100000 20 ML MDV SUBQ ONE ×2 (08:16)
[2021-11-21] MEDS ORDERED: BUPIVACAINE 0.5% PF 30 ML VIAL SUBQ ONE ×2 (08:16)
[2021-11-21] MEDS ORDERED: LACTATED RINGERS 400 ML IV ONE (08:49)
[2021-11-21] MEDS ORDERED: oxyCODONE 5 MG TABLET PO PRN (09:17)
--- NOTE | 2021-11-21 09:21 | ANESTHESIA POST OP EVALUATION ---
Anesthesia Post Eval - Post Anesthesia Eval Vitals: Last Vital Signs Temp 36.6 C 11/21/21 09:04 Pulse 80 11/21/21 09:04 Resp 21 11/21/21 09:04 BP 140/79 H 11/21/21 09:04 Pulse Ox 99 11/21/21 09:04 CV Function Including HR & BP: Stable Pain Control: Satisfactory Nausea & Vomiting: Negative Mental Status: Baseline Respiratory Status: Airway Patent Hydration Status: Satisfactory Anesthesia Complications: None
--- NOTE | 2021-11-21 09:23 | OPERATIVE REPORT ---
Operative Report - General Procedure Date: 11/21/21 Planned Procedure: Hysteroscopy D&C with possible polypectomy Pre-Op Diagnosis: postmenopausal bleeding Procedure Performed: Hysteroscopy D&C with polypectomy Post Op Diagnosis: Same - Procedure Note Primary Surgeon: Ethel Cardenas MD Anesthesia Provider: Miguel Oh CRNA Anesthesia Technique: General ET tube Pathology: intrauterine contents IV Fluids (mL): 350 Estimated Blood Loss (mL): 10 Urine Output (mL): 100 Indications: Patient is a 71 yo here for hysteroscopy D&C with possible polypectomy for postmenopausal bleeding. Patient was last seen by me inclinic 08/28/21. At that time, she reported having right-sided pelvic pain in mid March. It lasted about 1 month and then went away. She then started leaking urine. She now has to wear a pad to contain urine loss. In February or March she was treated for presumed UTI with antibiotics. Her testing had been inconclusive. The leaking started after the antibiotics. On July 11 she had bloody discharge times about 24 hours. Confident it was from vagina and not urine. It was mixed with urine. Pelvic pain has not returned. Remains partially incontinent. She has pelvic floor PT scheduled with Sari Jordan in [place]. She is ordinarily followed by Giuliana Rodrigues's Yo at [facility] in [place]. She had a pelvic on on 06/23/21 that showed an EMS of 4.1 mm and multiple small intramural fibroids. She had two ovarian cysts on the left ovary that were read as "mildly complex. The first as 1.7x1.1x1.5 cm and the second was 1.0x1.9x0.9 cm. She had a repeat us on 08/04/21 that showed a left ovarian cyst measuring 1.5x1m1.7. No change in EMS. No mention of second cyst. I reviewed both images myself. She was started on vaginal estrogen to mitigate UTI risks She did not notice a difference but has had more episodes of bleeding. On 09/07/21, she had a light period. She had a second episode on 09/22/21 that was heavier than prior bleeding and more in keeping with menses. She used a tampon but it was very painful and she had to remove it. Pain has been coming and going about 2 weeks ago. Last for a couple of hours at a time. It was so bothersome she took Azo, and her symptoms resolved. Incontinence symptoms are the same if not a little worse. Not affected by pain. Findings: Synechiae at apex of vagina. Pale and atrophic vaginal mucosa. Small uterus with polypoid tissue with notable vascularity. Uterine cavity cleared of all structural abnormalities at close of procedure. Bilateral tubal ostia visualized. Complications: None - Other Other Information/Narrative: Risks benefits and alternatives to the procedure were reviewed. Consent was again confirmed. Patient was taken to the operating room where she underwent general anesthesia. She was positioned in dorsolithotomy position with legs resting in yellowfin stirrups. She was prepped and draped in the usual sterile fashion. Preoperative antibiotics were not indicated. Preoperative checklist was performed. Exam under anesthesia was performed. Speculum was placed in the vagina and the cervix was visualized. Single-tooth tenaculum was placed at the anterior cervical lip. Paracervical block was administered using a total of 20 cc of 2% lidocaine with 0.5% bupivicaine with epinephrine was injected at the 4:00 and 8:00 positions lateral to the portio of the cervix. The cervical os was serially dilated with Hegar dilators to accommodate the caliber of the diagnostic hysteroscope. The hysteroscope was inserted and findings were noted as above. The hysteroscopic morcellator was inserted through the operative port. The intrauterine polyps were morcellated under direct visualization. Uterine cavity was smooth at close of the procedure. Hysteroscope was removed. All instruments were removed from the uterus. Tenaculum was removed. Tenaculum sites were noted to be hemostatic. All instruments were removed from the vagina. Procedure was well-tolerated without complication. Fluid deficit: 450 cc
[2021-11-21] MEDS ORDERED: oxyCODONE 5 MG TABLET ONE (09:31)
[2021-11-21 09:47] VITALS: BP 153/84
== END 2021-11-21 06:22 | disposition home or self-care (01) ==
LOC: SDS 06:21
PROVIDERS: ATTEND Obstetrics & Gynecology
PROC: 0UDB8ZZ Extraction of Endometrium, Via Natural or Artificial Opening Endoscopic (ICD-10-PCS; 2021-11-21)
PROC: 0UB98ZX Excision of Uterus, Via Natural or Artificial Opening Endoscopic, Diagnostic (ICD-10-PCS; principal; 2021-11-21 07:30)
DX: C55 Malignant neoplasm of uterus, part unspecified (principal); N84.0 Polyp of corpus uteri; D25.1 Intramural leiomyoma of uterus; N83.202 Unspecified ovarian cyst, left side; R32 Unspecified urinary incontinence; E66.9 Obesity, unspecified; Z68.30 Body mass index [BMI] 30.0-30.9, adult; Z79.51 Long term (current) use of inhaled steroids; Z79.890 Hormone replacement therapy; Z79.899 Other long term (current) drug therapy
CPT/HCPCS: 58558; A9270; J7120

== ENCOUNTER 2021-11-30 10:53 | Outpatient (CLI) | payer MEDICARE, OTHER | END 2021-11-30 10:54 | disposition home or self-care (01) | LOC: RT 10:53 | PROVIDERS: ATTEND Obstetrics & Gynecology | DX: Z01.810 Encounter for preprocedural cardiovascular examination (principal) | CPT/HCPCS: 93005 ==

== ENCOUNTER 2022-04-26 12:18 | Outpatient (CLI) | payer MEDICARE, OTHER ==
[2022-04-26 15:28] LABS: T4 (THYROXINE) 11.19 ug/dL (6.09-12.23)
[2022-04-26 15:34] LABS: THYROID STIMULATING HORMONE 2.98 uIU/mL (0.34-5.60)
== END 2022-04-26 12:19 | disposition home or self-care (01) ==
LOC: LAB.S 12:18
PROVIDERS: ATTEND Registered Nurse
DX: R94.6 Abnormal results of thyroid function studies (principal)
CPT/HCPCS: 36415; 84436; 84443; 84480

== ENCOUNTER 2022-10-05 08:29 | Outpatient (CLI) | payer MEDICARE, OTHER ==
[2022-10-05 14:56] LABS: BASOPHILS % (AUTO) 0.6 %; EOSINOPHILS # (AUTO) 0.2 10^3/uL (0.0-0.7); HCT - HEMATOCRIT 44.9 % (37.0-47.0); HGB - HEMOGLOBIN 14.1 g/dL (12.0-16.0); LYMPHOCYTES # (AUTO) 1.6 10^3/uL (1.5-3.5); LYMPHOCYTES % (AUTO) 34.2 %; MEAN CORPUSCULAR HEMOGLOBIN 29.9 pg (27.0-31.0); MEAN CORPUSCULAR HGB CONC 31.4 g/dL (32.0-36.0); MEAN CORPUSCULAR VOLUME 95.3 fL (81.0-99.0); MEAN PLATELET VOLUME 11.5 fL (7.9-10.8); MONOCYTES # (AUTO) 0.5 10^3/uL (0.0-1.0); MONOCYTES % (AUTO) 11.3 %; NEUTROPHILS # (AUTO) 2.3 10^3/uL (1.5-6.6); NEUTROPHILS % (AUTO) 48.7 %; PLT - PLATELET COUNT 300 10^3/uL (130-450); RED BLOOD COUNT 4.71 10^6/uL (4.20-5.40); RED CELL DISTRIBUTION WIDTH 13.2 % (12.0-15.0); WHITE BLOOD COUNT 4.8 x10^3/uL (4.8-10.8)
[2022-10-05 15:29] LABS: ALBUMIN 3.8 g/dL (3.2-5.5); ALKALINE PHOSPHATASE 70 IU/L (42-121); ALT ALANINE AMINOTRANSFERASE 21 IU/L (10-60); AST ASPARTATE AMINOTRANSFERASE 26 IU/L (10-42); BILIRUBIN,TOTAL 0.7 mg/dL (0.2-1.0); BUN - BLOOD UREA NITROGEN 10 mg/dL (6-20); CALCIUM 9.1 mg/dL (8.5-10.3); CARBON DIOXIDE - CO2 25 mmol/L (21-32); CHLORIDE 106 mmol/L (101-111); CREATININE 0.9 mg/dL (0.4-1.0); GFR - MDRD 61 (>89); GLUCOSE 83 mg/dL (70-100); POTASSIUM 4.3 mmol/L (3.5-5.0); SODIUM 140 mmol/L (135-145)
[2022-10-05 15:30] LABS: ALBUMIN/GLOBULIN RATIO 1.2 (1.0-2.2); CHOLESTEROL 248 mg/dL; HDL CHOLESTEROL 84 mg/dL; LDL CHOLESTEROL,CALCULATED 140 mg/dL; LDL/HDL RATIO 1.7 (<4.4); TRIGLYCERIDES 121 mg/dL; VLDL CHOLESTEROL 24 mg/dL
[2022-10-05 15:41] LABS: T4 (THYROXINE) 7.87 ug/dL (6.09-12.23)
[2022-10-05 15:47] LABS: THYROID STIMULATING HORMONE 0.79 uIU/mL (0.34-5.60)
== END 2022-10-05 08:30 | disposition home or self-care (01) ==
LOC: LAB.S 08:29
PROVIDERS: ATTEND Registered Nurse
DX: E78.5 Hyperlipidemia, unspecified (principal); E03.9 Hypothyroidism, unspecified; Z79.899 Other long term (current) drug therapy
CPT/HCPCS: 36415; 80053; 80061; 83721; 84436; 84443; 84480; 85025

== ENCOUNTER 2022-12-11 10:43 | Outpatient (CLI) | payer MEDICARE, OTHER ==
--- NOTE | 2022-12-11 17:53 | DEXA Report ---
PROCEDURE: Dexa Spine and/or Hip INDICATIONS: POST MENOPAUSAL TECHNIQUE: Dual energy x-ray absorptiometry (DXA) was performed on a Oonair System. Regions measur ed are the AP Spine, femoral neck, and if needed forearm. COMPARISON: 03/19/2019 FINDINGS: Lumbar Spine: L3-L4 excluded due to outlier high bone density Bone Mineral Density 1.082 g/cm/cm,T score -0.7, normal. Previous T score L1-L4 -0.7 Left Femoral Neck: Bone Mineral Density 0.699 g/cm/cm, T score -2.4, osteopenia. Previous T score -2.2. Left Hip: Bone Mineral Density 0.815 g/cm/cm,T score -1.5, osteopenia. Previous T score -1.5. No significant i nterval change. (T score greater or equal to -1.0: NORMAL) (T score from -1.1 to -2.4: OSTEOPENIA) (T score less than or equal to -2.5 to: OSTEOPOROSIS) Impression: Osteopenia. Patients with diagnosis of osteoporosis or osteopenia should have regular bone mineral density assess ment. For those eligible for Medicare, routine testing is allowed once every 2 years. Testing frequ ency can be increased for patients who have rapidly progressing disease or for those who are receivin g medical therapy to restore bone mass. Reviewed by: Vahid Porras MD on 12/11/2022 5:51 PM PDT Approved by: Vahid Porras MD on 12/11/2022 5:51 PM PDT Station ID: [id number]
== END 2022-12-11 10:44 | disposition home or self-care (01) ==
LOC: DI 10:43
PROVIDERS: ATTEND Registered Nurse
DX: M85.89 Other specified disorders of bone density and structure, multiple sites (principal); Z78.0 Asymptomatic menopausal state

== ENCOUNTER 2023-02-28 06:24 | Day surgery (SDC) | payer MEDICARE, OTHER ==
[2023-02-28] MEDS ORDERED: LACTATED RINGERS 1,000 ML IV ONE (06:42)
--- NOTE | 2023-02-28 07:11 | ANESTHESIA ---
Pre-Anesthesia VS, & Labs - Diagnosis history of colon polyps - Procedure colonoscopy Vital Signs: Temp Pulse Resp BP Pulse Ox O2 Flow Rate 36.0 C L 71 16 146/88 H 100 0 02/28/23 06:42 02/28/23 06:42 02/28/23 06:42 02/28/23 06:42 02/28/23 06:42 02/28/23 06:42 Height: 5 ft 3 in Weight (kg): 81.4 kg Body Mass Index: 31.8 BMI Classification: Obese - NPO >8 hours - Is Patient ?: No Home Medications and Allergies Home Medications: Ambulatory Orders Triamcinolone Acetonide [Nasacort] 1 spr NS BID 02/27/23 Levothyroxine [Synthroid] 1 tab ORAL DAILY 05/02/20 Fluticasone 44 Mcg [Flovent] 2 puffs INH BID 10/28/20 Tolterodine [Detrol LA] 2 mg PO DAILY 11/03/21 Triamcinolone Acetonide [Nasacort] 1 spr NS BID 02/27/23 Allergies/Adverse Reactions: Allergies Allergy/AdvReac Type Severity Reaction Status Date / Time No Known Drug Allergies Allergy Verified 02/28/23 06:48 Anes History & Medical History - Anesthetic History Anesthesia Complications: reports: Difficult airway (with hysterectomy, was told by preethi anesthesia) - Medical History Cardiovascular: reports: None Pulmonary: reports: Asthma Gastrointestinal: reports: Colon polyps Urinary: reports: None Neuro: reports: None Musculoskeletal: reports: None Endocrine/Autoimmune: reports: HyPOthyroidism Blood Disorders: reports: None Skin: reports: None Smoking Status: Former smoker (quit 1969) Psychosocial: reports: Alcohol (2 glasses of wine per day) History of Cancer?: Yes (endometrial cancer s/p radiation) - Surgical History General: reports: Appendectomy, Colonoscopy Eyes Ears Nose Throat (EENT): reports: Tonsil/Adenoidectomy Exam General: Alert, Oriented x3, Cooperative, No acute distress Dental: WNL Mouth Openin Fingerbreadth Neck Mobility: Normal Mallampati classification: III Thyromental Distance: 4-6 cm Mental/Cognitive Status: Alert/Oriented X3, Normal for patient Plan Anesthesia Type: General, Total IV Consent for Procedure(s) Verified and Reviewed: Yes Code Status: Attempt Resuscitation ASA classification: 2-Mild systemic disease Is this case an emergency?: No
[2023-02-28] MEDS ORDERED: PROPOFOL 500 MG/50 ML 500 MG/50 ML VIAL ONE (07:21)
--- NOTE | 2023-02-28 07:28 | HISTORY & PHYSICAL EXAMINATION ---
Chief Complaint - Chief Complaint Chief Complaint: her for surveillance colonoscopy History of Present Illness - History Obtained From Records Reviewed: yes History obtained from: pt Exam Limitations: none - History of Present Illness HPI Comment/Other: history numerous colon polyps History - Past Medical History Cardiovascular: reports: None Respiratory: reports: Asthma Neuro: reports: None Endocrine/Autoimmune: reports: HyPOthyroidism GI: reports: Colon polyps : reports: None HEENT: reports: None Psych: reports: None Musculoskeletal: reports: None Derm: reports: None MRSA Hx?: No - Past Surgical History General: reports: Appendectomy, Colonoscopy HEENT: reports: Tonsil/Adenoidectomy Meds/Allgy - Home Medications Home Medications: Ambulatory Orders Medication Instructions Recorded Confirmed Levothyroxine [Synthroid] 1 tab ORAL DAILY 05/02/20 02/27/23 Fluticasone 44 Mcg [Flovent] 2 puffs INH BID 10/28/20 02/27/23 Tolterodine [Detrol LA] 2 mg PO DAILY 11/03/21 02/27/23 Acetaminophen [Acetaminophen Extra 1,000 mg PO Q8H PRN #60 tablet 11/21/21 02/27/23 Strength] Docusate Sodium 100Mg Capsule 100 - 200 mg PO BID PRN #60 cap 11/21/21 02/27/23 [Colace 100Mg Capsule] Ibuprofen [Motrin] 600 mg PO Q6H PRN #60 tab 11/21/21 02/27/23 Triamcinolone Acetonide [Nasacort] 1 spr NS BID 02/27/23 02/27/23 - Allergies Allergies/Adverse Reactions: Allergies Allergy/AdvReac Type Severity Reaction Status Date / Time No Known Drug Allergies Allergy Verified 02/28/23 06:48 Review of Systems - Other Findings Other Findings: 10 pt ros as above otherwise unremarkable Exam - Vital Signs Vital Signs: Vital Signs x48h Temp Pulse Resp BP Pulse Ox O2 Flow Rate 02/28/23 06:42 36.0 C L 71 16 146/88 H 100 0 - Physical Exam General Appearance: positive: No acute distress, Alert Eyes Bilateral: positive: PERRL, EOMI ENT: positive: No signs of dehydration Neck: positive: No JVD, Trachea midline Respiratory: positive: No respiratory distress Cardiovascular: positive: Regular rate & rhythm Abdomen: positive: Non-tender, No distention Neurologic/Psychiatric: positive: Oriented x3 Conclusion/Plan - Problem List (1) History of adenomatous polyp of colon Conclusion/Plan: plan colonoscopy. parq held and consent obtained
[2023-02-28] MEDS ORDERED: MIDAZOLAM 2 MG/2 ML VIAL ONE (07:33)
[2023-02-28] MEDS ORDERED: LACTATED RINGERS 200 ML IV ONE (08:08)
[2023-02-28 08:36] VITALS: BP 119/74
--- NOTE | 2023-02-28 10:59 | ANESTHESIA POST OP EVALUATION ---
Anesthesia Post Eval - Post Anesthesia Eval Vitals: Last Vital Signs Temp 36.1 C L 02/28/23 08:32 Pulse 67 02/28/23 08:32 Resp 16 02/28/23 08:32 BP 119/74 02/28/23 08:32 Pulse Ox 97 02/28/23 08:32 O2 Flow Rate 0 02/28/23 06:42 CV Function Including HR & BP: Stable Pain Control: Satisfactory Nausea & Vomiting: Negative Mental Status: Baseline Respiratory Status: Airway Patent Hydration Status: Satisfactory Anesthesia Complications: None
== END 2023-02-28 06:25 | disposition home or self-care (01) ==
LOC: SDS 06:24
PROVIDERS: ATTEND Surgery
PROC: 0DBH8ZZ Excision of Cecum, Via Natural or Artificial Opening Endoscopic (ICD-10-PCS; principal; 2023-02-28 07:30)
DX: Z12.11 Encounter for screening for malignant neoplasm of colon (principal); D12.0 Benign neoplasm of cecum; K57.30 Diverticulosis of large intestine without perforation or abscess without bleeding; J45.909 Unspecified asthma, uncomplicated; E66.9 Obesity, unspecified; Z68.31 Body mass index [BMI] 31.0-31.9, adult; Z87.891 Personal history of nicotine dependence
CPT/HCPCS: 45385; J7120

== ENCOUNTER 2023-06-05 12:47 | Outpatient (CLI) | payer MEDICARE, OTHER ==
--- NOTE | 2023-06-06 12:05 | Mammography Report ---
BILATERAL DIGITAL SCREENING MAMMOGRAM 3D/2D: 06/05/2023 CLINICAL: Routine screening. Comparison is made to exams dated: 05/29/2021 mammogram, 05/10/2022 mammogram, 05/25/2020 mammogram, mammogram, 07/03/2017 mammogram, and 06/12/2016 mammogram - [facility]. There are scattered areas of fibroglandular density in both breasts (category b / 25%-50% glandular t issue). No significant masses, calcifications, or other findings are seen in either breast. There has been no significant interval change. IMPRESSION: NEGATIVE There is no mammographic evidence of malignancy. A 1 year screening mammogram is recommended. Based on the Tyrer Cuzick model (a risk assessment model) the patients lifetime risk is 3.0% and her 10 year risk is 2.5%. According to the ACR, ACS, and NCCN guidelines, an annual breast MRI exam janine g with mammogram is recommended if the patients lifetime risk is 20% or greater. This exam was interpreted at Station ID: [id number]. NOTE: For mammograms, a report in lay terms will be sent to the patient. Approximately 15% of breast malignancies will not be visualized mammographically. In the management of a palpable breast mass, a negative mammogram must not discourage biopsy of a clinically suspicious lesion. Electronically Signed By: Patrick almazan/marion:06/06/2023 06:53:19 letter sent: No_Letter ACR BI-RADS Category 1: Negative 3341F PARENCHYMAL PATTERN: (A) - The breast(s) demonstrate(s) scattered fibroglandular densities. BI-RADS CATEGORY: (1) - 1 Mammogram [id number] 1 year screening LATERALITY: (B)
== END 2023-06-05 12:48 | disposition home or self-care (01) ==
LOC: DI 12:47
DX: Z12.31 Encounter for screening mammogram for malignant neoplasm of breast (principal)

== ENCOUNTER 2023-06-05 12:47 | Outpatient (CLI) | payer MEDICARE, OTHER ==
--- NOTE | 2023-06-05 17:52 | Ultrasound Report ---
PROCEDURE: Head or Neck Soft Tissue INDICATIONS: LEFT THYROID NODULE TECHNIQUE: Real-time scanning was performed of the thyroid gland, with image documentation. COMPARISON: None FINDINGS: Right: Thyroid lobe measures 3.2 x 1.5 x 1.3 cm, and is homogeneous in echotexture. Left: Thyroid lobe measures 3.2 x 1.4 x 1.3 cm, and is homogenous in echotexture. Isthmus: 2.6 mm thick. Nodule number: One Location: Left inferior Size: 0.7 x 0.5 x 0.6 cm, previously 0.7 x 0.5 x 0.5 cm. Composition: Solid. Echogenicity: Isoechoic. Shape: wider than tall. Margins: Smooth (0 points). Echogenic foci: None (0 points). Total points: 3 ACR TI-RADS category: 3. IMPRESSION: Single left solid stable subcentimeter thyroid nodule. No additional follow-up required ACR TI-RADS definitions and recommendations: TI-RADS 1 (benign): 0 points. FNA not needed. TI-RADS 2 (not suspicious): 2 points. FNA not needed. TI-RADS 3 (mildly suspicious): 3 points. "FNA if 2.5 cm or larger, follow up if 1.5 cm or larger (at 1, 3, and 5 years). TI-RADS 4 (moderately suspicious): 4-6 points. "FNA if 1.5 cm or larger, follow up if 1 cm or larger (at 1, 2, 3, and 5 years). TI-RADS 5 (highly suspicious): 7 points or more. "FNA if 1 cm or larger, follow up if 0.5 cm or larger (every year for 5 years). Reviewed by: David Viramontes MD on 06/05/2023 4:51 PM GIOVANNI Approved by: David Viramontes MD on 06/05/2023 4:51 PM AKNICKI Station ID: [id number]
== END 2023-06-05 12:48 | disposition home or self-care (01) ==
LOC: DI 12:47
PROVIDERS: ATTEND Registered Nurse
DX: E04.1 Nontoxic single thyroid nodule (principal)

== ENCOUNTER 2023-10-22 08:45 | Outpatient (CLI) | payer MEDICARE, OTHER ==
[2023-10-22 14:46] LABS: BASOPHILS % (AUTO) 0.8 %; EOSINOPHILS # (AUTO) 0.2 10^3/uL (0.0-0.7); EOSINOPHILS % (AUTO) 3.8 %; HCT - HEMATOCRIT 44.5 % (37.0-47.0); LYMPHOCYTES # (AUTO) 1.5 10^3/uL (1.5-3.5); LYMPHOCYTES % (AUTO) 29.6 %; MEAN CORPUSCULAR HEMOGLOBIN 30.3 pg (27.0-31.0); MEAN CORPUSCULAR HGB CONC 31.5 g/dL (32.0-36.0); MEAN CORPUSCULAR VOLUME 96.3 fL (81.0-99.0); MONOCYTES # (AUTO) 0.6 10^3/uL (0.0-1.0); MONOCYTES % (AUTO) 11.6 %; NEUTROPHILS # (AUTO) 2.7 10^3/uL (1.5-6.6); NEUTROPHILS % (AUTO) 53.6 %; PLT - PLATELET COUNT 292 10^3/uL (130-450); RED BLOOD COUNT 4.62 10^6/uL (4.20-5.40); RED CELL DISTRIBUTION WIDTH 13.6 % (12.0-15.0)
[2023-10-22 15:17] LABS: ALBUMIN 4.1 g/dL (3.2-5.5); ALBUMIN/GLOBULIN RATIO 1.4 (1.0-2.2); ALKALINE PHOSPHATASE 73 IU/L (42-121); ALT ALANINE AMINOTRANSFERASE 19 IU/L (10-60); AST ASPARTATE AMINOTRANSFERASE 23 IU/L (10-42); BILIRUBIN,TOTAL 0.7 mg/dL (0.2-1.0); BUN - BLOOD UREA NITROGEN 15 mg/dL (6-20); CALCIUM 9.1 mg/dL (8.5-10.3); CARBON DIOXIDE - CO2 27 mmol/L (21-32); CHLORIDE 102 mmol/L (101-111); CHOL/HDL RATIO 2.8 (<4.4); CHOLESTEROL 241 mg/dL; CREATININE 0.9 mg/dL (0.6-1.3); GFR - MDRD 61 (>89); GLUCOSE 91 mg/dL (74-104); HDL CHOLESTEROL 85 mg/dL; LDL CHOLESTEROL,CALCULATED 135 mg/dL; LDL/HDL RATIO 1.6 (<4.4); POTASSIUM 4.2 mmol/L (3.5-4.5); SODIUM 139 mmol/L (135-145); TOTAL PROTEIN 7.1 g/dL (6.4-8.9); TRIGLYCERIDES 104 mg/dL (48-352); VLDL CHOLESTEROL 21 mg/dL
== END 2023-10-22 08:46 | disposition home or self-care (01) ==
LOC: LAB.S 08:45
PROVIDERS: ATTEND Registered Nurse
DX: I10 Essential (primary) hypertension (principal); Z13.228 Encounter for screening for other metabolic disorders; Z13.220 Encounter for screening for lipoid disorders; Z13.29 Encounter for screening for other suspected endocrine disorder; Z13.0 Encounter for screening for diseases of the blood and blood-forming organs and certain disorders involving the immune mechanism
CPT/HCPCS: 36415; 80053; 80061; 83721; 84443; 85025

== ENCOUNTER 2024-06-15 10:44 | Outpatient (CLI) | payer MEDICARE, OTHER ==
--- NOTE | 2024-06-17 15:31 | Mammography Report ---
BILATERAL DIGITAL SCREENING MAMMOGRAM 3D/2D: 06/15/2024 CLINICAL: Routine screening. Comparison is made to exams dated: 06/05/2023 mammogram, 05/10/2022 mammogram, 05/29/2021 mammogram, 05/01 mammogram, and 03/19/2019 mammogram - [facility]. There are scattered areas of fibroglandular density (category b / 25%-50% glandular tissue). No significant masses, calcifications, or other findings are seen in either breast. There has been no significant interval change. IMPRESSION: NEGATIVE There is no mammographic evidence of malignancy. A 1 year screening mammogram is recommended. Based on the Tyrer Cuzick model (a risk assessment model) the patient's lifetime risk is 2.8% and her 10 year risk is 2.6%. According to the ACR, ACS, and NCCN guidelines, an annual breast MRI exam janine g with mammogram is recommended if the patient's lifetime risk is 20% or greater. This exam was interpreted at Station ID: [id number]. NOTE: For mammograms, a report in lay terms will be sent to the patient. Approximately 15% of breast malignancies will not be visualized mammographically. In the management of a palpable breast mass, a negative mammogram must not discourage biopsy of a clinically suspicious lesion. Electronically Signed By: Swati Hollingsworth M.D., Ph.D. eb/penrad:06/16/2024 11:25:03 ACR BI-RADS Category 1: Negative 3341F PARENCHYMAL PATTERN: (A) - The breast(s) demonstrate(s) scattered fibroglandular densities. BI-RADS CATEGORY: (1) - 1 RECOMMENDATION: (ANNUAL) - Recommend routine annual screening mammography. [id number] 1 year screening LATERALITY: (B)
== END 2024-06-15 10:45 | disposition home or self-care (01) ==
LOC: DI.S 10:44
DX: Z12.31 Encounter for screening mammogram for malignant neoplasm of breast (principal)